=== PATIENT | female | born 1995 ===

== ENCOUNTER → 2024-04-04 | Outpatient (CLI) | payer OTHER ==
[2024-04-04 18:36] LABS: Candida glabrata-krusei, PCR NOT DETECTED (NOT DETECT)
[2024-04-04 18:39] LABS: BASOPHILS ABSOLUTE AUTO 0.02 K/mm3 (0.00-0.23); BASOPHILS PERCENT AUTO 0 % (0-2); EOSINOPHILS ABSOLUTE AUTO 0.03 K/mm3 (0.00-0.68); EOSINOPHILS PERCENT AUTO 0 % (0-6); Hematocrit 31.4 % (33.0-51.0); Hemoglobin 10.1 g/dL (11.5-16.0); IMMATURE GRAN ABSOLUTE AUTO 0.03 K/mm3 (0.00-0.10); IMMATURE GRAN PERCENT AUTO 0 % (0-1); LYMPHOCYTES ABSOLUTE AUTO 1.28 K/mm3 (0.84-5.20); LYMPHOCYTES PERCENT AUTO 15 % (21-46); MONOCYTES ABSOLUTE AUTO 0.49 K/mm3 (0.16-1.47); MONOCYTES PERCENT AUTO 6 % (4-13); Mean Corpuscular HGB 30.5 pg (26.0-34.0); Mean Corpuscular HGB Conc 32.2 g/dL (31.5-36.5); Mean Corpuscular Volume 95 fL (80-100); Mean Platelet Volume 10.9 fL (9.1-12.4); NEUTROPHILS ABSOLUTE AUTO 6.79 K/mm3 (1.96-9.15); NEUTROPHILS PERCENT AUTO 79 % (41-73); Platelet Count 322 K/mm3 (150-400); RDW Standard Deviation 41.8 fL (35.1-46.3); Red Blood Cell Count 3.31 M/mm3 (3.80-5.20); White Blood Cell Count 8.64 K/mm3 (4.00-11.30)
[2024-04-04 19:20] LABS: Bacterial Vaginosis PCR Positive (NEGATIVE); Candida Group, PCR DETECTED (NOT DETECT)
== END ==
LOC: LAB SHORT 15:36 → LAB 15:36
PROVIDERS: Advanced Practice Midwife
DX: O09.90 Supervision of high risk pregnancy, unspecified, unspecified trimester (principal); O23.599 Infection of other part of genital tract in pregnancy, unspecified trimester; B96.89 Other specified bacterial agents as the cause of diseases classified elsewhere
CPT/HCPCS: 81515; 82950; 85025

== ENCOUNTER → 2024-04-23 | Outpatient (CLI) | payer OTHER ==
[2024-04-23 19:28] LABS: Candida glabrata-krusei, PCR NOT DETECTED (NOT DETECT)
[2024-04-23 19:34] LABS: Bacterial Vaginosis PCR Positive (NEGATIVE); Candida Group, PCR DETECTED (NOT DETECT)
== END | disposition home or self-care (01) ==
LOC: LAB 15:46 → LAB SHORT 15:46
PROVIDERS: Advanced Practice Midwife
DX: B37.9 Candidiasis, unspecified (principal)
CPT/HCPCS: 81515

== ENCOUNTER 2024-06-15 21:12 | Inpatient (IN) | payer OTHER ==
[~2024-06-15] VITALS: Ht 175.3 cm; Wt 95.5 kg
[2024-06-15 21:26] VITALS: BP 116/66
[2024-06-16] VITALS (16 sets, daily range): BP systolic 103–128; BP diastolic 63–83
[2024-06-16] MEDS ORDERED: Acetaminophen 500 MG Tab PO PRN ×2 (03:05)
[2024-06-16] MEDS ORDERED: Lactated Ringer's 1,000 ML IV PRN (03:05)
[2024-06-16] MEDS ORDERED: Zolpidem Tartrate 5 MG Tab PO ONE (03:15)
[2024-06-16] MEDS ORDERED: PRENATAL TABLE1 EAC2 PO (03:46)
--- NOTE | 2024-06-16 08:39 | NUR ---
ROUNDED ON PT, PT APPEARS TO BE ASLEEP. DR GLOVER CALLED TO CHECK ON PT, INFORMED THAT PT IS STILL SLEEPING. WILL CONTACT DR GLOVER WHEN PT IS AWAKE.
[2024-06-16] MEDS ORDERED: FentaNYL Citrate 50 MCG/ML 2 ML Injection IV PRN (10:30)
[2024-06-16] MEDS ORDERED: FentaNYL 2mcg/ml-Bup 0.1% Epd 250 ML EPI PRN (10:35)
[2024-06-16] MEDS ORDERED: OXYTOCIN/RINGER'S LACTATE 500 ML IV SCH (10:35)
[2024-06-16] MEDS ORDERED: ePHEDrine Sulfate 50 MG/ML 1ML Injection XX PRN (10:35)
[2024-06-16] MEDS ORDERED: Lactated Ringer's 1,000 ML IV SCH ×4 (10:35→18:15)
[2024-06-16] MEDS ORDERED: Oxytocin 10 Unit / ML Vial IM PRN (10:40)
[2024-06-16] MEDS ORDERED: Methylergonovine Maleate 0.2MG / ML 1ML Amp IM PRN ×2 (10:40→18:20)
[2024-06-16] MEDS ORDERED: Calcium Carbonate 500 MG Tab Chew PO SCH (10:40)
[2024-06-16] MEDS ORDERED: Penicillin G Potassium 5,000,000 UNITS in NS 250 ML IV ONE (10:40)
[2024-06-16] MEDS ORDERED: Misoprostol 200 MCG Tab PR PRN ×2 (10:40→18:20)
[2024-06-16] MEDS ORDERED: Carboprost Tromethamine 250 MCG/ML 1ML Amp IM PRN (10:40)
[2024-06-16] MEDS ORDERED: Misoprostol 200 MCG Tab BC PRN (10:40)
[2024-06-16] MEDS ORDERED: Ondansetron HCl 2 MG / ML 2ML Vial IV PRN (10:45)
[2024-06-16] MEDS ORDERED: Tranexamic Acid 100 ML IV SCH (10:55)
[2024-06-16 11:05] LABS: BASOPHILS ABSOLUTE AUTO 0.02 K/mm3 (0.00-0.23); BASOPHILS PERCENT AUTO 0 % (0-2); EOSINOPHILS ABSOLUTE AUTO 0.06 K/mm3 (0.00-0.68); EOSINOPHILS PERCENT AUTO 1 % (0-6); Hematocrit 31.8 % (33.0-51.0); Hemoglobin 10.5 g/dL (11.5-16.0); IMMATURE GRAN ABSOLUTE AUTO 0.04 K/mm3 (0.00-0.10); IMMATURE GRAN PERCENT AUTO 1 % (0-1); LYMPHOCYTES ABSOLUTE AUTO 1.32 K/mm3 (0.84-5.20); LYMPHOCYTES PERCENT AUTO 16 % (21-46); MONOCYTES ABSOLUTE AUTO 0.55 K/mm3 (0.16-1.47); MONOCYTES PERCENT AUTO 7 % (4-13); Mean Corpuscular HGB 28.8 pg (26.0-34.0); Mean Corpuscular Volume 87 fL (80-100); Mean Platelet Volume 11.1 fL (9.1-12.4); NEUTROPHILS ABSOLUTE AUTO 6.15 K/mm3 (1.96-9.15); NEUTROPHILS PERCENT AUTO 76 % (41-73); Platelet Count 287 K/mm3 (150-400); RDW Coefficient Variation 13.1 % (11.7-14.2); RDW Standard Deviation 41.4 fL (35.1-46.3); Red Blood Cell Count 3.64 M/mm3 (3.80-5.20); White Blood Cell Count 8.14 K/mm3 (4.00-11.30)
[2024-06-16] MEDS ORDERED: Penicillin G Potassium 2,500,000 UNITS in Dextrose 5% 100 ML IV SCH (15:00)
[2024-06-16] MEDS ORDERED: Ibuprofen 400 MG Tab PO PRN (18:15)
[2024-06-16] MEDS ORDERED: FLU VACC TS2024-25(6MOS UP)/PF 45 MCG/0.5 ML SYRINGE IM SCH (18:15)
[2024-06-16] MEDS ORDERED: Ketorolac Tromethamine 30mg Vial IV PRN (18:15)
[2024-06-16] MEDS ORDERED: Witch Hazel/Glycerin PADS TOP PRN (18:15)
[2024-06-16] MEDS ORDERED: OXYTOCIN/RINGER'S LACTATE 500 ML IV PRN (18:20)
[2024-06-16] MEDS ORDERED: Benzocaine Topical Anesthetic Spray 60GM TOP PRN (18:20)
[2024-06-17 00:31] VITALS: BP 111/74
[2024-06-17 04:35] VITALS: BP 116/76
[2024-06-17 07:25] VITALS: BP 109/69
[2024-06-17] MEDS ORDERED: Prenatal Vit/FE Fumarate/FA 1 Tab PO SCH (09:00)
[2024-06-17] MEDS ORDERED: IBUP800 PO (10:11)
[2024-06-17 11:34] VITALS: BP 122/77
[2024-06-17 15:00] VITALS: BP 121/88
[2024-06-17 19:38] VITALS: BP 125/84
--- NOTE | 2024-06-17 20:15 | NUR ---
DISCHARGE SUMMARY: PT WALKED TO VEHICLE BY RN, WELL AND FOB. PT DECLINED QUESTIONS OR CONCERNS. VERBALIZED UNDERSTANDING OF SUPPLEMENTING 10-15ML AFTER EACH SESSION, AGREEABLE TO WEIGHT CHECK ON MONDAY TO DEVELOP NEW PLAN OF CARE IF NB WEIGHT LOSS IMPROVING
== END 2024-06-17 20:15 | disposition home or self-care (01) | DRG 806 ==
LOC: OBS 21:12 → BC 21:13 → OBS 06-16 02:44 → BC 06-16 02:48
PROVIDERS: ADMIT Family Medicine
PROC: 3E033VJ Introduction of Other Hormone into Peripheral Vein, Percutaneous Approach (ICD-10-PCS; principal; 2024-06-16)
PROC: 10907ZC Drainage of Amniotic Fluid, Therapeutic from Products of Conception, Via Natural or Artificial Opening (ICD-10-PCS; principal; 2024-06-16)
PROC: 10E0XZZ Delivery of Products of Conception, External Approach (ICD-10-PCS; principal; 2024-06-16)
DX: O99.324 Drug use complicating childbirth (principal); O98.32 Other infections with a predominantly sexual mode of transmission complicating childbirth; Z37.0 Single live birth; O99.824 Streptococcus B carrier state complicating childbirth; O99.334 Smoking (tobacco) complicating childbirth; F17.290 Nicotine dependence, other tobacco product, uncomplicated; M41.9 Scoliosis, unspecified; O99.892 Other specified diseases and conditions complicating childbirth; O99.02 Anemia complicating childbirth; F12.90 Cannabis use, unspecified, uncomplicated; O99.344 Other mental disorders complicating childbirth; F32.A Depression, unspecified; F41.9 Anxiety disorder, unspecified; K21.9 Gastro-esophageal reflux disease without esophagitis; O99.62 Diseases of the digestive system complicating childbirth; A59.01 Trichomonal vulvovaginitis; Z3A.39 39 weeks gestation of pregnancy; Z88.8 Allergy status to other drugs, medicaments and biological substances; Z71.6 Tobacco abuse counseling; Z86.16 Personal history of COVID-19
CPT/HCPCS: 59025; 81003; 85025; 86850; 86900; 86901; 99214; A9270; J1885; J2540; J2590; J7050; J7120